=== PATIENT | female | born 1990 | race Caucasian/White ===

== ENCOUNTER 2017-05-05 19:57 | Emergency (ER) | payer OTHER ==
[2017-05-05 21:14] LABS: BASOPHIL % 0.1 % (0-2); PLATELET COUNT 438 x10^3mcL (130-400)
[2017-05-05 21:45] LABS: rbc morphology (normal/abnorm) ABNORMAL (NORMAL)
[2017-05-05 23:56] VITALS: BP 138/74
== END 2017-05-05 23:56 | disposition home or self-care (01) ==
LOC: ED 19:57
PROVIDERS: Emergency Medicine
DX: O20.0 Threatened abortion (principal); Z3A.00 Weeks of gestation of pregnancy not specified
CPT/HCPCS: 36415

== ENCOUNTER 2019-12-23 15:57 | Emergency (ER) | payer OTHER ==
[~2019-12-23] VITALS: Ht 162.6 cm; Wt 97.5 kg
[2019-12-23 16:05] VITALS: Ht 162.6 cm; Wt 97.5 kg
[2019-12-23 17:49] VITALS: BP 122/75
== END 2019-12-23 17:49 | disposition home or self-care (01) ==
LOC: ED 15:57
DX: S00.83XA Contusion of other part of head, initial encounter (principal); I10 Essential (primary) hypertension; V49.49XA Driver injured in collision with other motor vehicles in traffic accident, initial encounter; W22.10XA Striking against or struck by unspecified automobile airbag, initial encounter; Y93.I9 Activity, other involving external motion; Y92.413 State road as the place of occurrence of the external cause; Y99.8 Other external cause status

== ENCOUNTER 2020-01-29 22:15 | Emergency (ER) | payer OTHER ==
[~2020-01-29] VITALS: Ht 162.6 cm; Wt 96.2 kg
[2020-01-29 22:28] VITALS: Ht 162.6 cm; Wt 96.2 kg
[2020-01-30 00:06] LABS: BASOPHIL % 0.4 % (0-2); PLATELET COUNT 357 x10^3mcL (130-400)
[2020-01-30 00:07] LABS: RED CELL DISTRIBUTION WIDTH 16.8 % (11.5-14.5)
[2020-01-30 01:09] LABS: CALCIUM 8.1 mg/dL (8.5-10.1); CARBON DIOXIDE 25.9 mmol/L (21-32); CHLORIDE SERUM 105 mmol/L (98-107); CREATININE SERUM 0.9 mg/dL (0.6-1.0); GFR1 > 60 mL/min; GLUCOSE SERUM 86 mg/dL (74-106); POTASSIUM SERUM 3.4 mmol/L (3.5-5.1); SODIUM SERUM 139 mmol/L (136-145)
[2020-01-30 02:15] VITALS: BP 126/82
== END 2020-01-30 02:15 | disposition home or self-care (01) ==
LOC: ED 22:15
PROVIDERS: Emergency Medicine
DX: N20.0 Calculus of kidney (principal); I10 Essential (primary) hypertension
CPT/HCPCS: J1885; J7030; Q9967